=== PATIENT | female | born 1990 | race Caucasian/White ===

== ENCOUNTER 2017-10-14 22:10 | Emergency (ER) | payer BC ==
[2017-10-14] MEDS ORDERED: Sodium Chloride 0.9% 1,000 ML IV ONE (23:44)
[2017-10-14] MEDS ORDERED: Ondansetron 4 MG/2 ML SDV IVPUSH ONE (23:44)
--- NOTE | 2017-10-15 00:26 | EDM.PDOC ---
ED HPI GENERAL MEDICAL PROBLEM - General Chief Complaint: Gastrointestinal Problem Stated Complaint: ABDOMINAL CRAMPS/VOMITING/DIARRHEA/13 WKS Time Seen by Provider: 10/14/17 22:33 Source of Information: Reports: Patient, RN Notes Reviewed, Significant Other ( Fiance) History Limitations: Reports: No Limitations - History of Present Illness INITIAL COMMENTS - FREE TEXT/NARRATIVE: The patient states that she is approximately 13 weeks gestation. . LMP 2016. ERI 04/19/2018. She states that she developed nausea and upper abdominal pain around 20:00 tonight. She developed watery, non-bloody diarrhea around 21:00, then emesis around 21:40. She states that the diarrhea has been frequent. No recent fever. 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 No prior similar symptoms. The patient did not attempt any home remedies or treatments. The patient does not have a PCP. Her Informatica Developer is Dr. Whitlock. 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 - Past Surgical History HEENT Surgical History: Reports: Myringotomy w Tube(s) (bilateral), Tonsillectomy GI Surgical History: Reports: Hernia, Inguinal (bilateral) Female Surgical History: Reports: Other (See Below) (Exploratory laparoscopy looking for endometriosis - none found) Musculoskeletal Surgical History: Reports: Other (See Below) (Left Lisfranc repair) Social & Family History - Tobacco Use Smoking Status *Q: Never Smoker - Alcohol Use Alcohol Use History: Yes Alcohol Use Frequency: Socially - Recreational Drug Use Recreational Drug Use: No - Living Situation & Occupation Living situation: Reports: Single, with Significant Other (Fiance) 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) ED ROS GENERAL - Review of Systems Review Of Systems: See Below Constitutional: Reports: No Symptoms HEENT: Reports: No Symptoms Respiratory: Reports: No Symptoms Cardiovascular: Reports: No Symptoms Endocrine: Reports: No Symptoms GI/Abdominal: Reports: No Symptoms : Reports: No Symptoms Musculoskeletal: Reports: No Symptoms Skin: Reports: No Symptoms Neurological: Reports: No Symptoms Psychiatric: Reports: No Symptoms Hematologic/Lymphatic: Reports: No Symptoms Immunologic: Reports: No Symptoms ED EXAM, GI/ABD - Physical Exam Exam: See Below Exam Limited By: No Limitations General Appearance: Alert, WD/WN, No Apparent Distress Eyes: Bilateral: Normal Appearance, EOMI Ears: Normal External Exam, Hearing Grossly Normal Nose: Normal Inspection, No Blood Throat/Mouth: Normal Inspection, Normal Lips, Normal Voice, No Airway Compromise Head: Atraumatic, Normocephalic Neck: Normal Inspection, Full Range of Motion Respiratory/Chest: No Respiratory Distress, Lungs Clear, Normal Breath Sounds, No Accessory Muscle Use Cardiovascular: Normal Peripheral Pulses, Regular Rate, Rhythm, No Gallop, No JVD, No Murmur, No Rub GI/Abdominal Exam: Normal Bowel Sounds, Soft, Non-Tender, No Organomegaly, No Distention, No Abnormal Bruit, No Mass (Female) Exam: Deferred Rectal (Female) Exam: Deferred Back Exam: Normal Inspection, Full Range of Motion. No: CVA Tenderness (L), CVA Tenderness (R) Extremities: Normal Inspection, Normal Range of Motion, No Pedal Edema, Normal Capillary Refill Neurological: Alert, Oriented, Normal Cognition, No Motor/Sensory Deficits Psychiatric: Normal Affect Skin Exam: Warm, Dry, Intact, Normal Color, No Rash Course - Vital Signs Last Recorded V/S: Last Vital Signs Temp 35.9 C 10/14/17 22:18 Pulse 106 H 10/14/17 22:18 Resp 18 10/14/17 22:18 BP 130/96 H 10/14/17 22:18 Pulse Ox 100 10/14/17 22:18 - Orders/Labs/Meds Orders: Active Orders 24 hr Category Date Time Status Heart Tones [RC] ASDIRECTED Care 10/15/17 03:17 Active Labs: Laboratory Tests 10/14/17 10/14/17 10/15/17 Range/Units 22:24 22:24 00:50 WBC 17.73 H (3.98-10.04) K/mm3 RBC 5.13 (3.98-5.22) M/mm3 Hgb 15.4 (11.2-15.7) gm/L Hct 43.6 (34.1-44.9) % MCV 85.0 (79.4-94.8) fl MCH 30.0 (25.6-32.2) pg MCHC 35.3 (32.2-35.5) g/dl RDW Std Deviation 36.9 (36.4-46.3) fL Plt Count 206 (182-369) K/mm3 MPV 11.1 (9.4-12.3) fl Neutrophils % (Manual) 88 H (40-60) % Band Neutrophils % 0 (0-10) % Lymphocytes % (Manual) 8 L (20-40) % Atypical Lymphs % 1 % Monocytes % (Manual) 3 (2-10) % Eosinophils % (Manual) 0 L (0.7-5.8) % Basophils % (Manual) 0 L (0.1-1.2) Platelet Estimate Adequate Plt Morphology Comment Normal RBC Morph Comment Normal Sodium 139 (136-145) mEq/L Potassium 3.1 L (3.5-5.1) mEq/L Chloride 105 (98-107) mEq/L Carbon Dioxide 22 (21-32) mEq/L Anion Gap 15.1 H (5-15) BUN 11 (7-18) mg/dL Creatinine 0.6 (0.55-1.02) mg/dL Est Cr Clr Drug Dosing 129.51 mL/min Estimated GFR (MDRD) > 60 (>60) mL/min BUN/Creatinine Ratio 18.3 H (14-18) Glucose 96 (74-106) mg/dL Calcium 9.5 (8.5-10.1) mg/dL Total Bilirubin 1.0 (0.2-1.0) mg/dL AST 20 (15-37) U/L ALT 26 (14-59) U/L Alkaline Phosphatase 54 (46-116) U/L Total Protein 7.0 (6.4-8.2) g/dl Albumin 3.7 (3.4-5.0) g/dl Globulin 3.3 gm/dL Albumin/Globulin Ratio 1.1 (1-2) Lipase 156 (73-393) U/L Urine Color Dark yellow (Yellow) Urine Appearance Clear (Clear) Urine pH 6.0 (5.0-8.0) Ur Specific [place] > or = 1.030 (1.005-1.030) Urine Protein 1+ H (Negative) Urine Glucose (UA) Negative (Negative) Urine Ketones 2+ H (Negative) Urine Occult Blood Negative (Negative) Urine Nitrite Negative (Negative) Urine Bilirubin 1+ H (Negative) Urine Urobilinogen 0.2 (0.2-1.0) Ur Leukocyte Esterase Negative (Negative) Urine RBC 0-5 (0-5) /hpf Urine WBC 0-5 (0-5) /hpf Ur Epithelial Cells 0-5 (0-5) /hpf Amorphous Sediment Moderate H (NOT SEEN) /hpf Urine Bacteria Occasional (FEW) /hpf Hyaline Casts 0-5 (0-5) /lpf Urine Mucus Many H (FEW) /hpf Meds: Medications Discontinued Medications Generic Name Dose Route Start Last Admin Trade Name Freq PRN Reason Stop Dose Admin Sodium Chloride 1,000 mls @ 999 mls/hr 10/14/17 23:44 10/14/17 23:53 Normal Saline IV 10/15/17 00:44 999 mls/hr ONETIME ONE Administration Ondansetron HCl 4 mg 10/14/17 23:44 10/14/17 23:54 Zofran IVPUSH 10/14/17 23:45 4 mg ONETIME ONE Administration Ondansetron HCl 4 mg 10/15/17 02:36 10/15/17 02:40 Zofran IVPUSH 10/15/17 02:37 4 mg ONETIME ONE Administration Potassium Chloride 40 meq 10/15/17 01:11 10/15/17 01:16 Klor-Con M20 PO 10/15/17 01:12 40 meq ONETIME ONE Administration - Re-Assessments/Exams Free Text/Narrative Re-Assessment/Exam: 10/15/17 01:11 The patient's potassium returned low at 3.1. I have ordered 40 mEq oral potassium. 10/15/17 03:14 The patient states that she is feeling substantially better following IV fluid and Zofran. I will discharge her home with a prescription for Zofran. I would like her to follow-up with her Informatica Developer early this coming week. 10/15/17 03:24 heart tones are 170. Departure - Departure Time of Disposition: 03:14 Disposition: Home, Self-Care 01 Condition: Good Clinical Impression: Gastroenteritis, - Discharge Information Prescriptions: Ondansetron [Zofran ODT] 4 mg PO Q8H PRN #10 tab.dis PRN Reason: Nausea/Vomiting Instructions: Viral Gastroenteritis, Adult Referrals: Yamileth Whitlock MD [Primary Care Provider] - Forms: ED Department Discharge Additional Instructions: You were seen in the emergency room for nausea, vomiting, diarrhea, and upper abdominal pain. Workup in the ER included blood work, a urinalysis, and heart tones. Your workup found your white blood cell count to be elevated, but with no left shift to suggest a bacterial infection. Your potassium was found to be low at 3.1. You were given oral potassium. The remainder of your workup was unremarkable. You do not have a urinary tract infection. You do not have pancreatitis. Your heart tones were normal at 170 BPM. Dissolve one tablet of the anti-nausea medicine Zofran on your tongue up to every 8 hours, as needed for nausea/vomiting. Stay adequately hydrated. Be aware that anti-diarrheal medicines are not approved for . We recommend that you notify the office of Dr. Whitlock of your ER visit and Zofran prescription. Dr. Whitlock may prefer you to be on a different anti- nausea medicine. If any other problems, please do not hesitate to return to the ER. - My Orders Last 24 Hours: My Active Orders 10/15/17 03:17 Heart Tones [RC] ASDIRECTED - Assessment/Plan Last 24 Hours: My Active Orders 10/15/17 03:17 Heart Tones [RC] ASDIRECTED
[2017-10-15] MEDS ORDERED: Potassium Chloride 20 MEQ Tab.ER PO ONE (01:11)
[2017-10-15] MEDS ORDERED: Ondansetron 4 MG/2 ML SDV IVPUSH ONE (02:36)
== END 2017-10-15 03:35 | disposition home or self-care (01) ==
LOC: JD.ED 22:10
DX: O99.611 Diseases of the digestive system complicating pregnancy, first trimester (principal); K52.9 Noninfective gastroenteritis and colitis, unspecified; Z3A.13 13 weeks gestation of pregnancy
CPT/HCPCS: 36415; 80053; 81001; 83690; 85025; 96361; 96374; 96375; 99284; A9270; J2405; J7040

== ENCOUNTER 2018-03-29 17:49 | Inpatient (IN) | payer BC ==
[2018-03-29] MEDS ORDERED: Nalbuphine 20 MG/ML 1 ML Syringe IVPUSH PRN (18:23)
[2018-03-29] MEDS ORDERED: Misoprostol 100 MCG Tab VAG PRN (18:23)
[2018-03-29] MEDS ORDERED: Ondansetron 4 MG/2 ML SDV IVPUSH PRN ×2 (18:23→20:57)
[2018-03-29] MEDS ORDERED: Sodium Chloride 0.9% 10 ML Syringe FLUSH PRN (18:23)
[2018-03-29] MEDS ORDERED: Oxytocin/Lactated Ringers 10 UNIT/1,000 ML BAG IV SCH ×3 (18:30→23:15)
--- NOTE | 2018-03-29 18:36 | PCM.LDHP ---
L&D History of Present Illness - General Date of Service: 03/29/18 Admit Problem/Dx: Patient Status Order with Admit Dx/Problem 03/29/18 18:24 Patient Status [ADT] Routine Admission Diagnosis/Problem Admission Diagnosis/Problem Gestational hypertension Source of Information: Patient History Limitations: Reports: No Limitations - History of Present Illness Introduction:: Patient is a 27 y/o at 37 0/7 wks who presents for IOL for gestational HTN. Last Tuesday had been seen with several mild range BP's. Had a normal follow up earlier this week, but today again noted to have mild range BP's. This is in addition to intermittent KNOX's and other complaints. Otherwise doing well. Notes good FM. 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 Other Musculoskeletal History: Kathy-lukas repair L) foot Psychiatric History: Reports: ADD - Past Surgical History HEENT Surgical History: Reports: Myringotomy w Tube(s) (bilateral), Tonsillectomy GI Surgical History: Reports: Hernia, Inguinal (bilateral) Female Surgical History: Reports: Other (See Below) (Diagnostic laparoscopy looking for endometriosis - none found) Musculoskeletal Surgical History: Reports: Other (See Below) (Left Lisfranc repair) Social & Family History - Tobacco Use Smoking Status *Q: Never Smoker - Alcohol Use Alcohol Use History: No - Recreational Drug Use Recreational Drug Use: No - Living Situation & Occupation Living situation: Reports: Single, with Significant Other (Fiance) 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[employer]) H&P Review of Systems - Review of Systems: Review Of Systems: See Below General: Reports: No Symptoms Pulmonary: Reports: No Symptoms Cardiovascular: Reports: No Symptoms Gastrointestinal: Reports: No Symptoms Genitourinary: Reports: No Symptoms Musculoskeletal: Reports: No Symptoms Psychiatric: Reports: No Symptoms Neurological: Reports: No Symptoms L&D Exam - Exam Exam: See Below - OB Specific Contraction Intensity: Mild Movement: Active Heart Tones: Present Heart Tones per Min: 135 Heart Rate (FHR) Variability: Moderate (6-25 bmp) Presentation: Vertex - Duong Score Duong Score Cervix Position: Posterior Duong Score Consistency: Soft Duong Score Effacement: >80% Duong Score Dilation: 1-2 cm Duong Score 's Station: -2 Duong Score Total: 7 - Exam General: Alert, Oriented, Cooperative Lungs: Clear to Auscultation, Normal Respiratory Effort Cardiovascular: Regular Rate, Regular Rhythm GI/Abdominal Exam: Soft, Non-Tender Genitourinary: Normal external exam Extremities: Normal Inspection, Pedal Edema Skin: Warm, Dry, Intact - Problem List (1) 37 weeks gestation of SNOMED Code(s): 94158479 ICD Code: Z3A.37 - 37 WEEKS GESTATION OF Status: Acute Current Visit: Yes (2) Gestational hypertension SNOMED Code(s): 34921455 ICD Code: O13.9 - GESTATIONAL HTN W/O SIGNIFICANT PROTEINURIA, UNSP TRIMESTER Status: Acute Current Visit: Yes Qualifiers: Trimester: third trimester Qualified Code(s): O13.3 - Gestational [ -induced] hypertension without significant proteinuria, third trimester Problem List Initiated/Reviewed/Updated: Yes Orders Last 24hrs: Active Orders 24 hr Category Date Time Status Patient Status [ADT] Routine ADT 03/29/18 18:24 Ordered Activity as Tolerated [RC] PFP Care 03/29/18 18:23 Ordered Communication Order [RC] ASDIRECTED Care 03/29/18 18:23 Ordered Communication Order [RC] ASDIRECTED Care 03/29/18 18:23 Ordered Communication Order [RC] ASDIRECTED Care 03/29/18 18:23 Ordered Monitoring [RC] CONTINUOUS Care 03/29/18 18:23 Ordered Notify Provider Vital Signs [RC] ASDIRECTED Care 03/29/18 18:23 Ordered Notify Provider [RC] ASDIRECTED Care 03/29/18 18:23 Ordered Notify Provider [RC] PRN Care 03/29/18 18:23 Ordered Peripheral IV Care [RC] . DIRECTED Care 03/29/18 18:24 Ordered Vaginal Exam [RC] ASDIRECTED Care 03/29/18 18:23 Ordered Vital Signs [RC] ASDIRECTED Care 03/29/18 18:23 Ordered Regular Diet [DIET] Diet 03/29/18 Dinner Ordered ALANINE AMINOTRANSFERASE,ALT [CHEM] Routine Lab 03/29/18 18:23 Ordered ASPARTATE AMNIOTRANSFERASE,AST [CHEM] Routine Lab 03/29/18 18:23 Ordered CBC W/O DIFF,HEMOGRAM [HEME] Routine Lab 03/29/18 18:23 Ordered CREATININE W/GFR [CHEM] Routine Lab 03/29/18 18:23 Ordered TYPE AND SCREEN [BBK] Routine Lab 03/29/18 18:23 Ordered UA W/MICROSCOPIC [URIN] Routine Lab 03/29/18 18:23 Ordered Lactated Ringers [Ringers, Lactated] 1,000 ml Med 03/29/18 18:30 Ordered IV ASDIRECTED Misoprostol [Cytotec] Med 03/29/18 18:23 Ordered 25 mcg VAG Q4H PRN Nalbuphine [Nubain] Med 03/29/18 18:23 Ordered 10 mg IVPUSH Q2H PRN Ondansetron [Zofran] Med 03/29/18 18:23 Ordered 4 mg IVPUSH Q4H PRN Oxytocin/Lactated Ringers [Pitocin in LR 10 Units/1,000 Med 03/29/18 18:30 Ordered ML] 10 unit in 1,000 ml IV .CONTINUOUS Oxytocin/Lactated Ringers [Pitocin in LR 10 Units/1,000 Med 03/29/18 18:30 Ordered ML] 10 unit in 1,000 ml IV TITRATE Sodium Chloride 0.9% [Saline Flush] Med 03/29/18 18:23 Ordered 10 ml FLUSH ASDIRECTED PRN Deep Tendon Reflexes [WOMSER] ASDIRECTED Oth 03/29/18 18:30 Ordered Peripheral IV Insertion Adult [OM.PC] Routine Oth 03/29/18 18:23 Ordered Medication Orders Lactated Ringer's (Ringers, Lactated) 1,000 mls @ 40 mls/hr IV ASDIRECTED ZEE Oxytocin/Lactated Ringer's (Pitocin In Lr 10 Units/1,000 Ml) 10 unit in 1,000 mls @ 12 mls/hr IV TITRATE ZEE; Protocol Oxytocin/Lactated Ringer's (Pitocin In Lr 10 Units/1,000 Ml) 10 unit in 1,000 mls @ 500 mls/hr IV .CONTINUOUS ZEE Misoprostol (Cytotec) 25 mcg VAG Q4H PRN PRN Reason: cervical ripening Nalbuphine HCl (Nubain) 10 mg IVPUSH Q2H PRN PRN Reason: Pain (moderate 4-6) Ondansetron HCl (Zofran) 4 mg IVPUSH Q4H PRN PRN Reason: Nausea/Vomiting Sodium Chloride (Saline Flush) 10 ml FLUSH ASDIRECTED PRN PRN Reason: Keep Vein Open Assessment/Plan Comment:: 27 y/o at 37 0/7 wks presents for IOL for gestational HTN * CBC and T&S * AST, ALT, Cr, UA * Anderson bulb placed. Will plan Cytotec to start and then eventual pitocin * GBS negative, no need for antibiotics * Pain management per patient preference * Anticipate
[2018-03-29] MEDS ORDERED: Misoprostol 25 MCG (1/4 of 100 MCG) Tab ONE (18:55)
[2018-03-29] MEDS ORDERED: ePHEDrine 50 MG/ML SDV IVPUSH PRN (20:57)
[2018-03-29] MEDS ORDERED: diphenhydrAMINE 50 MG/ML SDV IVPUSH PRN (20:57)
[2018-03-29] MEDS ORDERED: fentaNYL 100 MCG/2 ML SDV EPIDUR PRN (20:57)
[2018-03-29] MEDS ORDERED: Bupivacaine/fentaNYL/NS 100 ML Bag EPIDUR SCH (21:00)
--- NOTE | 2018-03-29 21:15 | PCM.PREANE ---
Preanesthetic Assessment - Procedure Proposed Procedure: LEONEL - Anesthesia/Transfusion/Family Hx Anesthesia History: Prior Anesthesia Without Reaction Family History of Anesthesia Reaction: No Transfusion History: No Prior Transfusion(s) - Review of Systems General: No Symptoms Pulmonary: No Symptoms Cardiovascular: No Symptoms Gastrointestinal: Other (occ GERD relieved with milk) Neurological: No Symptoms Other: Reports: None - Physical Assessment NPO Status Date: 03/29/18 NPO Status Time: 18:00 Respiratory Rate: 16 Vital Signs: Last Vital Signs Temp 36.7 C 03/29/18 18:23 Pulse 84 03/29/18 18:23 Resp 16 03/29/18 18:23 BP 141/98 H 03/29/18 18:23 Pulse Ox Height: 1.68 m Weight: 87.09 kg ASA Class: 2 Mental Status: Alert & Oriented x3 Airway Class: Mallampati = 1 Dentition: Reports: Normal Dentition Thyro-Mental Finger Breadths: 3 Mouth Opening Finger Breadths: 3 ROM/Head Extension: Full Lungs: Clear to Auscultation, Normal Respiratory Effort Cardiovascular: Regular Rate, Regular Rhythm - Lab Values: Laboratory Last Values WBC 12.57 K/mm3 (3.98-10.04) H 03/29/18 18:45 RBC 4.20 M/mm3 (3.98-5.22) 03/29/18 18:45 Hgb 12.8 gm/L (11.2-15.7) 03/29/18 18:45 Hct 37.1 % (34.1-44.9) 03/29/18 18:45 MCV 88.3 fl (79.4-94.8) 03/29/18 18:45 MCH 30.5 pg (25.6-32.2) 03/29/18 18:45 MCHC 34.5 g/dl (32.2-35.5) 03/29/18 18:45 RDW Std Deviation 39.1 fL (36.4-46.3) 03/29/18 18:45 Plt Count 175 K/mm3 (182-369) L 03/29/18 18:45 MPV 11.6 fl (9.4-12.3) 03/29/18 18:45 Creatinine 0.7 mg/dL (0.55-1.02) 03/29/18 18:45 Est Cr Clr Drug Dosing 111.01 mL/min 03/29/18 18:45 Estimated GFR (MDRD) > 60 mL/min (>60) 03/29/18 18:45 AST 14 U/L (15-37) L 03/29/18 18:45 ALT 20 U/L (14-59) 03/29/18 18:45 Urine Color Yellow (Yellow) 03/29/18 18:15 Urine Appearance Clear (Clear) 03/29/18 18:15 Urine pH 7.0 (5.0-8.0) 03/29/18 18:15 Ur Specific [place] 1.015 (1.005-1.030) 03/29/18 18:15 Urine Protein Negative (Negative) 03/29/18 18:15 Urine Glucose (UA) Negative (Negative) 03/29/18 18:15 Urine Ketones Negative (Negative) 03/29/18 18:15 Urine Occult Blood Negative (Negative) 03/29/18 18:15 Urine Nitrite Negative (Negative) 03/29/18 18:15 Urine Bilirubin Negative (Negative) 03/29/18 18:15 Urine Urobilinogen 0.2 (0.2-1.0) 03/29/18 18:15 Ur Leukocyte Esterase Negative (Negative) 03/29/18 18:15 Urine RBC 0-5 /hpf (0-5) 03/29/18 18:15 Urine WBC 0-5 /hpf (0-5) 03/29/18 18:15 Ur Epithelial Cells 0-5 /hpf (0-5) 03/29/18 18:15 Urine Bacteria Few /hpf (FEW) 03/29/18 18:15 Urine Mucus Not seen /hpf (FEW) 03/29/18 18:15 Blood Type AB POSITIVE 03/29/18 18:45 Gel Antibody Screen Negative 03/29/18 18:45 - Allergies Allergies/Adverse Reactions: Allergies Allergy/AdvReac Type Severity Reaction Status Date / Time banana Allergy Itching Uncoded 03/29/18 18:52 cantelope Allergy Itching Uncoded 03/29/18 18:52 latex Allergy Itching Uncoded 03/29/18 18:52 watermelon Allergy Facial Uncoded 03/29/18 18:52 Swelling - Blood Blood Available: No Product(s) Available: None - Anesthesia Plan Pre-Op Medication Ordered: None - Acknowledgements Anesthesia Type Planned: Epidural Pt an Appropriate Candidate for the Planned Anesthesia: Yes Alternatives and Risks of Anesthesia Discussed w Pt/Guardian: Yes Pt/Guardian Understands and Agrees with Anesthesia Plan: Yes PreAnesthesia Questionnaire Respiratory History: Reports: Asthma 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 Musculoskeletal History: Kathy-lukas repair L) foot Psychiatric History: Reports: ADD - Past Surgical History HEENT Surgical History: Reports: Myringotomy w Tube(s), Tonsillectomy GI Surgical History: Reports: Hernia, Inguinal Female Surgical History: Reports: Other (See Below) Musculoskeletal Surgical History: Reports: Other (See Below) - SUBSTANCE USE Smoking Status *Q: Never Smoker Recreational Drug Use History: No - HOME MEDS Home Medications: Home Meds Vits #93/Iron Fum/FA [ Formula Tablet] 1 tab PO DAILY 10/14/17 [History] Ondansetron [Zofran ODT] 4 mg PO Q8H PRN #10 tab.dis 10/15/17 [Rx] - CURRENT (IN HOUSE) MEDS Current Meds: Current Medications Diphenhydramine HCl (Benadryl) 25 mg IVPUSH Q6H PRN PRN Reason: Pruritis Ephedrine Sulfate (Ephedrine Sulfate) 5 mg IVPUSH ASDIRECTED PRN PRN Reason: Hypotension Fentanyl (Sublimaze) 100 mcg EPIDUR Q3H PRN PRN Reason: Pain Fentanyl/Bupivacaine HCl (Fentanyl/Bupivacaine/Ns 2 Mcg-0.125% 100 Ml) 100 ml EPIDUR ASDIRECTED ZEE Lactated Ringer's (Ringers, Lactated) 1,000 mls @ 40 mls/hr IV ASDIRECTED ZEE Oxytocin/Lactated Ringer's (Pitocin In Lr 10 Units/1,000 Ml) 10 unit in 1,000 mls @ 12 mls/hr IV TITRATE ZEE; Protocol Oxytocin/Lactated Ringer's (Pitocin In Lr 10 Units/1,000 Ml) 10 unit in 1,000 mls @ 500 mls/hr IV .CONTINUOUS ZEE Misoprostol (Cytotec) 25 mcg VAG Q4H PRN PRN Reason: cervical ripening Last Admin: 03/29/18 19:15 Dose: 25 mcg Nalbuphine HCl (Nubain) 10 mg IVPUSH Q2H PRN PRN Reason: Pain (moderate 4-6) Ondansetron HCl (Zofran) 4 mg IVPUSH Q4H PRN PRN Reason: Nausea/Vomiting Ondansetron HCl (Zofran) 4 mg IVPUSH ONETIME PRN PRN Reason: Nausea/Vomiting Sodium Chloride (Saline Flush) 10 ml FLUSH ASDIRECTED PRN PRN Reason: Keep Vein Open Discontinued Medications Misoprostol (Cytotec) Confirm Administered Dose 25 mcg .ROUTE .[facility] ONE Stop: 03/29/18 18:56
[2018-03-29] MEDS: Lactated Ringers 1,000 ML IV SCH (23:11)
[2018-03-30] MEDS ORDERED: Bupivacaine 0.25% 10 ML SDV ONE (04:00)
[2018-03-30] MEDS: Lactated Ringers 1,000 ML IV SCH ×2 (06:17→07:45)
--- NOTE | 2018-03-30 06:24 | PCM.PNLD ---
Labor Progress Note - VS & Meds Vital Signs: Last Vital Signs Temp 36.7 C 03/29/18 18:23 Pulse 84 03/29/18 18:23 Resp 16 03/29/18 21:14 BP 141/98 H 03/29/18 18:23 Pulse Ox Active Medications: Current Medications Diphenhydramine HCl (Benadryl) 25 mg IVPUSH Q6H PRN PRN Reason: Pruritis Ephedrine Sulfate (Ephedrine Sulfate) 5 mg IVPUSH ASDIRECTED PRN PRN Reason: Hypotension Fentanyl (Sublimaze) 100 mcg EPIDUR Q3H PRN PRN Reason: Pain Fentanyl/Bupivacaine HCl (Fentanyl/Bupivacaine/Ns 2 Mcg-0.125% 100 Ml) 100 ml EPIDUR ASDIRECTED ZEE Lactated Ringer's (Ringers, Lactated) 1,000 mls @ 40 mls/hr IV ASDIRECTED ZEE Last Admin: 03/29/18 23:11 Dose: 40 mls/hr Oxytocin/Lactated Ringer's (Pitocin In Lr 10 Units/1,000 Ml) 10 unit in 1,000 mls @ 12 mls/hr IV TITRATE EZE; Protocol Last Titration: 03/30/18 05:30 Dose: 8 munits/min, 48 mls/hr Oxytocin/Lactated Ringer's (Pitocin In Lr 10 Units/1,000 Ml) 10 unit in 1,000 mls @ 500 mls/hr IV .CONTINUOUS ZEE Misoprostol (Cytotec) 25 mcg VAG Q4H PRN PRN Reason: cervical ripening Last Admin: 03/29/18 19:15 Dose: 25 mcg Nalbuphine HCl (Nubain) 10 mg IVPUSH Q2H PRN PRN Reason: Pain (moderate 4-6) Ondansetron HCl (Zofran) 4 mg IVPUSH Q4H PRN PRN Reason: Nausea/Vomiting Ondansetron HCl (Zofran) 4 mg IVPUSH ONETIME PRN PRN Reason: Nausea/Vomiting Sodium Chloride (Saline Flush) 10 ml FLUSH ASDIRECTED PRN PRN Reason: Keep Vein Open Discontinued Medications Oxytocin/Lactated Ringer's (Pitocin In Lr 10 Units/1,000 Ml) 10 unit in 1,000 mls @ 12 mls/hr IV TITRATE ZEE; Protocol Misoprostol (Cytotec) Confirm Administered Dose 25 mcg .ROUTE .[facility] ONE Stop: 03/29/18 18:56 Last Admin: 03/29/18 23:24 Dose: Not Given - Uterine Contractions Uterine Monitoring Mode: External [place] Contraction Intensity: Moderate - Monitoring Monitor Mode: External Ultrasound Heart Rate (FHR) Per Doppler: 130 Heart Rate (FHR) Variability: Moderate (6-25 bmp) Accelerations: Present, 15x15 Decelerations: None Strip Review: Category I - Vaginal Exam Dilation (cm): 4 Effacement (Percent): 75 Station: -2 Cervical Position: Midposition - Labor Progress (Free Text) Labor Progress: Patient doing well. Anderson bulb out at 2200. Pitocin started around 2330. Now at 8. Just starting to feel uncomfortable since about 0430 or so. AROM performed with release of clear fluid. Pressures mild range overnight.
[2018-03-30] MEDS ORDERED: Lidocaine 1% 50 ML MDV ONE (12:38)
--- NOTE | 2018-03-30 13:24 | PCM.DEL ---
L & D Note - General Info Date of Service: 03/30/18 - Delivery Note Labor: Induced by ARM, Induced by Oxytocin Cervical Ripening Method: Balloon Device, Misoprostil Delivery Outcome: Livebirth Infant Delivery Method: Spontaneous Vaginal Delivery-Single Delivery Mode: Spontaneous Presentation: Left Occiput Anterior (IRENA) Nuchal Cord: None Anesthesia Type: Epidural Anesthetic: Lidocaine (Xylocaine) 1% Plain Amniotic Fluid Description: Clear Episiotomy Type: None Laceration: 2nd Degree, Labial (left sided) Suture type: Vicryl Suture size: 2-0 Placenta: Intact, Spontaneous Cord: 3 Vessels Estimated Blood Loss: 300 Resuscitation Needed: Yes : Suctioned, Bulb Syringe, Stimulated, Warmed, [place] Used, Warmer Used Score 1 min: 8 Score 5 min: 9 Delivery Comments (Free Text/Narrative):: Patient found to be complete and began pushing. With maternal pushing effort head delivered from and IRENA presentation. No nuchal cord present. With gentle downward traction the shoulders and body delivered. placed on maternal abdomen. Cord clamped and cut. Cord blood obtained. Placenta allowed time to separate and expelled intact. Inspection of the perineum showed a 2nd degree laceration and a left labia laceration. These were repaired with two separate 2-0 vicryl rapide sutures - General Info Date of Service: 03/30/18 - Patient Data Vitals - Most Recent: Last Vital Signs Temp 36.7 C 03/29/18 18:23 Pulse 84 03/29/18 18:23 Resp 16 03/29/18 21:14 BP 141/98 H 03/29/18 18:23 Pulse Ox Weight - Most Recent: 87.09 kg Lab Results Last 24 Hours: Laboratory Results - last 24 hr 03/29/18 03/29/18 03/29/18 Range/Units 18:15 18:45 18:45 WBC 12.57 H (3.98-10.04) K/mm3 RBC 4.20 (3.98-5.22) M/mm3 Hgb 12.8 (11.2-15.7) gm/L Hct 37.1 (34.1-44.9) % MCV 88.3 (79.4-94.8) fl MCH 30.5 (25.6-32.2) pg MCHC 34.5 (32.2-35.5) g/dl RDW Std Deviation 39.1 (36.4-46.3) fL Plt Count 175 L (182-369) K/mm3 MPV 11.6 (9.4-12.3) fl Creatinine 0.7 (0.55-1.02) mg/dL Est Cr Clr Drug Dosing 111.01 mL/min Estimated GFR (MDRD) > 60 (>60) mL/min AST 14 L (15-37) U/L ALT 20 (14-59) U/L Urine Color Yellow (Yellow) Urine Appearance Clear (Clear) Urine pH 7.0 (5.0-8.0) Ur Specific [place] 1.015 (1.005-1.030) Urine Protein Negative (Negative) Urine Glucose (UA) Negative (Negative) Urine Ketones Negative (Negative) Urine Occult Blood Negative (Negative) Urine Nitrite Negative (Negative) Urine Bilirubin Negative (Negative) Urine Urobilinogen 0.2 (0.2-1.0) Ur Leukocyte Esterase Negative (Negative) Urine RBC 0-5 (0-5) /hpf Urine WBC 0-5 (0-5) /hpf Ur Epithelial Cells 0-5 (0-5) /hpf Urine Bacteria Few (FEW) /hpf Urine Mucus Not seen (FEW) /hpf Blood Type Gel Antibody Screen 03/29/18 Range/Units 18:45 WBC (3.98-10.04) K/mm3 RBC (3.98-5.22) M/mm3 Hgb (11.2-15.7) gm/L Hct (34.1-44.9) % MCV (79.4-94.8) fl MCH (25.6-32.2) pg MCHC (32.2-35.5) g/dl RDW Std Deviation (36.4-46.3) fL Plt Count (182-369) K/mm3 MPV (9.4-12.3) fl Creatinine (0.55-1.02) mg/dL Est Cr Clr Drug Dosing mL/min Estimated GFR (MDRD) (>60) mL/min AST (15-37) U/L ALT (14-59) U/L Urine Color (Yellow) Urine Appearance (Clear) Urine pH (5.0-8.0) Ur Specific [place] (1.005-1.030) Urine Protein (Negative) Urine Glucose (UA) (Negative) Urine Ketones (Negative) Urine Occult Blood (Negative) Urine Nitrite (Negative) Urine Bilirubin (Negative) Urine Urobilinogen (0.2-1.0) Ur Leukocyte Esterase (Negative) Urine RBC (0-5) /hpf Urine WBC (0-5) /hpf Ur Epithelial Cells (0-5) /hpf Urine Bacteria (FEW) /hpf Urine Mucus (FEW) /hpf Blood Type AB POSITIVE Gel Antibody Screen Negative Med Orders - Current: Current Medications Diphenhydramine HCl (Benadryl) 25 mg IVPUSH Q6H PRN PRN Reason: Pruritis Ephedrine Sulfate (Ephedrine Sulfate) 5 mg IVPUSH ASDIRECTED PRN PRN Reason: Hypotension Fentanyl (Sublimaze) 100 mcg EPIDUR Q3H PRN PRN Reason: Pain Last Admin: 03/30/18 06:54 Dose: 100 mcg Fentanyl/Bupivacaine HCl (Fentanyl/Bupivacaine/Ns 2 Mcg-0.125% 100 Ml) 100 ml EPIDUR ASDIRECTED ZEE Last Admin: 03/30/18 06:54 Dose: 100 ml Lactated Ringer's (Ringers, Lactated) 1,000 mls @ 40 mls/hr IV ASDIRECTED ZEE Last Admin: 03/30/18 07:45 Dose: 40 mls/hr Oxytocin/Lactated Ringer's (Pitocin In Lr 10 Units/1,000 Ml) 10 unit in 1,000 mls @ 12 mls/hr IV TITRATE ZEE; Protocol Last Titration: 03/30/18 08:36 Dose: 9 munits/min, 54 mls/hr Oxytocin/Lactated Ringer's (Pitocin In Lr 10 Units/1,000 Ml) 10 unit in 1,000 mls @ 500 mls/hr IV .CONTINUOUS [facility] Misoprostol (Cytotec) 25 mcg VAG Q4H PRN PRN Reason: cervical ripening Last Admin: 03/29/18 19:15 Dose: 25 mcg Nalbuphine HCl (Nubain) 10 mg IVPUSH Q2H PRN PRN Reason: Pain (moderate 4-6) Ondansetron HCl (Zofran) 4 mg IVPUSH Q4H PRN PRN Reason: Nausea/Vomiting Last Admin: 03/30/18 07:44 Dose: 4 mg Ondansetron HCl (Zofran) 4 mg IVPUSH ONETIME PRN PRN Reason: Nausea/Vomiting Sodium Chloride (Saline Flush) 10 ml FLUSH ASDIRECTED PRN PRN Reason: Keep Vein Open Discontinued Medications Oxytocin/Lactated Ringer's (Pitocin In Lr 10 Units/1,000 Ml) 10 unit in 1,000 mls @ 12 mls/hr IV TITRATE ZEE; Protocol Lidocaine HCl (Xylocaine 1%) Confirm Administered Dose 50 ml .ROUTE .STK-MED ONE Stop: 03/30/18 12:39 Misoprostol (Cytotec) Confirm Administered Dose 25 mcg .ROUTE .STK-MED ONE Stop: 03/29/18 18:56 Last Admin: 03/29/18 23:24 Dose: Not Given - Problem List & Annotations (1) 37 weeks gestation of SNOMED Code(s): 12940341 Code(s): Z3A.37 - 37 WEEKS GESTATION OF Status: Acute Current Visit: Yes (2) Gestational hypertension SNOMED Code(s): 55000119 Code(s): O13.9 - GESTATIONAL HTN W/O SIGNIFICANT PROTEINURIA, UNSP TRIMESTER Status: Acute Current Visit: Yes Qualifiers: Trimester: third trimester Qualified Code(s): O13.3 - Gestational [ -induced] hypertension without significant proteinuria, third trimester (3) Vaginal delivery SNOMED Code(s): 892803435 Code(s): O80 - ENCOUNTER FOR FULL-TERM UNCOMPLICATED DELIVERY Status: Acute Current Visit: Yes - Problem List Review Problem List Initiated/Reviewed/Updated: Yes - My Orders Last 24 Hours: My Active Orders 03/29/18 18:15 UA W/MICROSCOPIC [URIN] Routine 03/29/18 18:23 Activity as Tolerated [RC] PFP Communication Order [RC] ASDIRECTED Communication Order [RC] ASDIRECTED Communication Order [RC] ASDIRECTED Notify Provider Vital Signs [RC] ASDIRECTED Notify Provider [RC] ASDIRECTED Notify Provider [RC] PRN Vital Signs [RC] ASDIRECTED Misoprostol [Cytotec] 25 mcg VAG Q4H PRN Nalbuphine [Nubain] 10 mg IVPUSH Q2H PRN Ondansetron [Zofran] 4 mg IVPUSH Q4H PRN Sodium Chloride 0.9% [Saline Flush] 10 ml FLUSH ASDIRECTED PRN Peripheral IV Insertion Adult [OM.PC] Routine 03/29/18 18:24 Patient Status [ADT] Routine Peripheral IV Care [RC] . DIRECTED 03/29/18 18:30 Lactated Ringers [Ringers, Lactated] 1,000 ml IV ASDIRECTED Oxytocin/Lactated Ringers [Pitocin in LR 10 Units/1,000 ML] 10 unit in 1,000 ml IV .CONTINUOUS Oxytocin/Lactated Ringers [Pitocin in LR 10 Units/1,000 ML] 10 unit in 1,000 ml IV TITRATE Deep Tendon Reflexes [WOMSER] ASDIRECTED 03/29/18 Dinner Regular Diet [DIET] - Assessment Assessment:: 27 y/o G1 now P1001 PPD#0 from at 37 1/7 wks - Plan Plan:: * Routine cares * Encourage breast feeding * Monitor BP's closely after delivery * Discharge home in 1-2 days
[2018-03-30] MEDS ORDERED: Lanolin 100% Cream 7 GM Tube TOP PRN (13:32)
[2018-03-30] MEDS ORDERED: Benzocaine/Menthol 20%-0.5% Spray 56 GM Canister TOP PRN (13:32)
[2018-03-30] MEDS ORDERED: Acetaminophen 325 MG Tab PO PRN (13:32)
[2018-03-30] MEDS ORDERED: Witch Hazel Medicated Pads 100/Jar TOP PRN (13:32)
[2018-03-30] MEDS: Ibuprofen 600 MG Tab PO PRN (13:51)
[2018-03-31] MEDS: Ibuprofen 600 MG Tab PO PRN ×4 (03:40→21:20)
--- NOTE | 2018-03-31 07:04 | PCM.PNPP ---
- General Info Date of Service: 03/31/18 Functional Status: Reports: Pain Controlled, Tolerating Diet, Ambulating, Urinating - Review of Systems General: Reports: No Symptoms Pulmonary: Reports: No Symptoms Cardiovascular: Reports: No Symptoms Gastrointestinal: Reports: No Symptoms Genitourinary: Reports: No Symptoms Musculoskeletal: Reports: No Symptoms - Patient Data Vital Signs - Most Recent: Last Vital Signs Temp 36.8 C 03/30/18 20:55 Pulse 81 03/30/18 20:55 Resp 16 03/30/18 20:55 BP 105/78 03/30/18 20:55 Pulse Ox 97 03/30/18 20:55 Weight - Most Recent: 87.09 kg Med Orders - Current: Current Medications Acetaminophen (Tylenol) 650 mg PO Q4H PRN PRN Reason: mild pain or fever Benzocaine/Menthol (Dermoplast Pain Relief [place]) 0 gm TOP ASDIRECTED PRN PRN Reason: Perineal Comfort Measure Last Admin: 03/30/18 15:47 Dose: 1 spray Docusate Sodium (Colace) 100 mg PO BID PRN PRN Reason: Constipation Emollient Ointment (Lansinoh Hpa) 0 gm TOP ASDIRECTED PRN PRN Reason: Sore Nipples Ibuprofen (Motrin) 600 mg PO Q6H PRN PRN Reason: Mild pain or fever Last Admin: 03/31/18 03:40 Dose: 600 mg Witch Isi (Tucks) 1 pad TOP ASDIRECTED PRN PRN Reason: Hemorrhoid pain Last Admin: 03/30/18 15:47 Dose: 1 pad Discontinued Medications Diphenhydramine HCl (Benadryl) 25 mg IVPUSH Q6H PRN PRN Reason: Pruritis Ephedrine Sulfate (Ephedrine Sulfate) 5 mg IVPUSH ASDIRECTED PRN PRN Reason: Hypotension Fentanyl (Sublimaze) 100 mcg EPIDUR Q3H PRN PRN Reason: Pain Last Admin: 03/30/18 06:54 Dose: 100 mcg Fentanyl/Bupivacaine HCl (Fentanyl/Bupivacaine/Ns 2 Mcg-0.125% 100 Ml) 100 ml EPIDUR ASDIRECTED [facility] Last Admin: 03/30/18 06:54 Dose: 100 ml Lactated Ringer's (Ringers, Lactated) 1,000 mls @ 40 mls/hr IV ASDIRECTED [facility] Last Admin: 03/30/18 07:45 Dose: 40 mls/hr Oxytocin/Lactated Ringer's (Pitocin In Lr 10 Units/1,000 Ml) 10 unit in 1,000 mls @ 12 mls/hr IV TITRATE ZEE; Protocol Last Titration: 03/30/18 08:36 Dose: 9 munits/min, 54 mls/hr Oxytocin/Lactated Ringer's (Pitocin In Lr 10 Units/1,000 Ml) 10 unit in 1,000 mls @ 500 mls/hr IV .CONTINUOUS ZEE Oxytocin/Lactated Ringer's (Pitocin In Lr 10 Units/1,000 Ml) 10 unit in 1,000 mls @ 12 mls/hr IV TITRATE ZEE; Protocol Lidocaine HCl (Xylocaine 1%) Confirm Administered Dose 50 ml .ROUTE .STK-MED ONE Stop: 03/30/18 12:39 Last Admin: 03/30/18 13:03 Dose: 50 ml Misoprostol (Cytotec) 25 mcg VAG Q4H PRN PRN Reason: cervical ripening Last Admin: 03/29/18 19:15 Dose: 25 mcg Misoprostol (Cytotec) Confirm Administered Dose 25 mcg .ROUTE .STK-MED ONE Stop: 03/29/18 18:56 Last Admin: 03/29/18 23:24 Dose: Not Given Nalbuphine HCl (Nubain) 10 mg IVPUSH Q2H PRN PRN Reason: Pain (moderate 4-6) Ondansetron HCl (Zofran) 4 mg IVPUSH Q4H PRN PRN Reason: Nausea/Vomiting Last Admin: 03/30/18 07:44 Dose: 4 mg Ondansetron HCl (Zofran) 4 mg IVPUSH ONETIME PRN PRN Reason: Nausea/Vomiting Sodium Chloride (Saline Flush) 10 ml FLUSH ASDIRECTED PRN PRN Reason: Keep Vein Open - Interaction Infant Disposition, : [place] in Room with Family Interaction: Holding Feeding: Breastfed ; Nursed Well Support Person: Significant Other - Recovery Exam Fundal Tone: Firm Fundal Level: 1 Fingerbreadths Below Umbilicus Fundal Placement: Midline Lochia Amount: Small Lochia Color: Rubra/Red Perineum Description: Edematous Episiotomy/Laceration: Approximated Bladder Status: Voiding Urinary Elimination: Voided - Exam General: Alert, Oriented, Cooperative GI/Abdominal Exam: Soft, Non-Tender Extremities: Normal Inspection Skin: Warm, Dry, Intact - Problem List & Annotations (1) 37 weeks gestation of SNOMED Code(s): 69638713 Code(s): Z3A.37 - 37 WEEKS GESTATION OF Status: Acute Current Visit: Yes (2) Gestational hypertension SNOMED Code(s): 40510618 Code(s): O13.9 - GESTATIONAL HTN W/O SIGNIFICANT PROTEINURIA, UNSP TRIMESTER Status: Acute Current Visit: Yes Qualifiers: Trimester: third trimester Qualified Code(s): O13.3 - Gestational [ -induced] hypertension without significant proteinuria, third trimester (3) Vaginal delivery SNOMED Code(s): 906869828 Code(s): O80 - ENCOUNTER FOR FULL-TERM UNCOMPLICATED DELIVERY Status: Acute Current Visit: Yes - Problem List Review Problem List Initiated/Reviewed/Updated: Yes - My Orders Last 24 Hours: My Active Orders 03/30/18 13:32 Activity as Tolerated [RC] PER UNIT ROUTINE Vital Signs [RC] ASDIRECTED Acetaminophen [Tylenol] 650 mg PO Q4H PRN Benzocaine/Menthol [Dermoplast Pain Relief [place]] See Dose Instructions TOP ASDIRECTED PRN Docusate Sodium [Colace] 100 mg PO BID PRN Ibuprofen [Motrin] 600 mg PO Q6H PRN Lanolin [Lansinoh HPA] See Dose Instructions TOP ASDIRECTED PRN Witch Isi [Tucks] 1 pad TOP ASDIRECTED PRN Assess Lochia [WOMSER] Per Unit Routine Assess Uterine Involution [WOMSER] Per Unit Routine Breast Pump [WOMSER] Per Unit Routine Heat Therapy [OM.PC] PRN Ice Therapy [OM.PC] Per Unit Routine Perineal Care [OM.PC] Per Unit Routine Peripheral IV Discontinue [OM.PC] Routine Sitz Bath [OM.PC] Per Unit Routine 03/30/18 Lunch Regular Diet [DIET] 03/31/18 13:32 Heat Therapy [OM.PC] PRN - Assessment Assessment:: 27 y/o G1 now P1001 PPD#1 from at 37 1/7 wks - Plan Plan:: * Routine cares * Encourage breast feeding * BP's appropriate. Continue to monitor closely * Discharge home tomorrow
[2018-03-31] MEDS: Docusate Sodium 100 MG Cap PO PRN ×2 (08:44→21:20)
[2018-04-01] MEDS: Ibuprofen 600 MG Tab PO PRN (05:32)
--- NOTE | 2018-04-01 10:24 | PCM.DCSUM1 ---
Discharge Summary - Hospital Course Free Text/Narrative:: See delivery dictation HPI Initial Comments: See delivery dictation Brief History: See delivery dictation - Discharge Data Discharge Date: 04/01/18 Discharge Disposition: Home, Self-Care 01 Condition: Good - Discharge Diagnosis/Problem(s) (1) Second degree laceration of perineum, delivered, current hospitalization SNOMED Code(s): 095989963 ICD Code: O70.1 - SECOND DEGREE PERINEAL LACERATION DURING DELIVERY Status : Acute Current Visit: Yes (2) 37 weeks gestation of SNOMED Code(s): 22097127 ICD Code: Z3A.37 - 37 WEEKS GESTATION OF Status: Acute Current Visit: Yes (3) Gestational hypertension SNOMED Code(s): 16184210 ICD Code: O13.9 - GESTATIONAL HTN W/O SIGNIFICANT PROTEINURIA, UNSP TRIMESTER Status: Acute Current Visit: Yes Qualifiers: Trimester: third trimester Qualified Code(s): O13.3 - Gestational [ -induced] hypertension without significant proteinuria, third trimester (4) Vaginal delivery SNOMED Code(s): 612805601 ICD Code: O80 - ENCOUNTER FOR FULL-TERM UNCOMPLICATED DELIVERY Status: Acute Current Visit: Yes - Patient Summary/Data Complications: None Consults: None Hospital Course: Uneventful - Patient Instructions Diet: Regular Diet as Tolerated, Low Sodium Driving: Do Not Drive (48 hours) Showering/Bathing: May Shower Notify Provider of: Fever, Increased Pain, Swelling and Redness, Drainage, Nausea and/or Vomiting - Discharge Plan Prescriptions/Med Rec: Ibuprofen [Advil Liqui-Gels] 200 - 600 mg PO Q6H #50 capsule Home Medications: Home Meds Vits #93/Iron Fum/FA [ Formula Tablet] 1 tab PO DAILY 10/14/17 [History] Ondansetron [Zofran ODT] 4 mg PO Q8H PRN #10 tab.dis 10/15/17 [Rx] Acetaminophen [Tylenol] 650 mg PO Q4H PRN tablet 04/01/18 [Rx] Ibuprofen [Advil Liqui-Gels] 200 - 600 mg PO Q6H #50 capsule 04/01/18 [Rx] Referrals: Yamileth Whitlock MD [Physician] - (Next week. Follow-up of blood pressure.) - Discharge Summary/Plan Comment DC Time >30 min.: No - Patient Data Vitals - Most Recent: Last Vital Signs Temp 99.5 F 04/01/18 08:09 Pulse 79 04/01/18 08:09 Resp 16 04/01/18 08:09 BP 131/91 H 04/01/18 08:09 Pulse Ox 98 04/01/18 08:09 Weight - Most Recent: 192 lb Med Orders - Current: Current Medications Acetaminophen (Tylenol) 650 mg PO Q4H PRN PRN Reason: mild pain or fever Last Admin: 03/31/18 08:43 Dose: 650 mg Benzocaine/Menthol (Dermoplast Pain Relief [place]) 0 gm TOP ASDIRECTED PRN PRN Reason: Perineal Comfort Measure Last Admin: 03/30/18 15:47 Dose: 1 spray Docusate Sodium (Colace) 100 mg PO BID PRN PRN Reason: Constipation Last Admin: 03/31/18 21:20 Dose: 100 mg Emollient Ointment (Lansinoh Hpa) 0 gm TOP ASDIRECTED PRN PRN Reason: Sore Nipples Ibuprofen (Motrin) 600 mg PO Q6H PRN PRN Reason: Mild pain or fever Last Admin: 04/01/18 05:32 Dose: 600 mg Witch Isi (Tucks) 1 pad TOP ASDIRECTED PRN PRN Reason: Hemorrhoid pain Last Admin: 03/30/18 15:47 Dose: 1 pad Discontinued Medications Diphenhydramine HCl (Benadryl) 25 mg IVPUSH Q6H PRN PRN Reason: Pruritis Ephedrine Sulfate (Ephedrine Sulfate) 5 mg IVPUSH ASDIRECTED PRN PRN Reason: Hypotension Fentanyl (Sublimaze) 100 mcg EPIDUR Q3H PRN PRN Reason: Pain Last Admin: 03/30/18 06:54 Dose: 100 mcg Fentanyl/Bupivacaine HCl (Fentanyl/Bupivacaine/Ns 2 Mcg-0.125% 100 Ml) 100 ml EPIDUR ASDIRECTED [facility] Last Admin: 03/30/18 06:54 Dose: 100 ml Lactated Ringer's (Ringers, Lactated) 1,000 mls @ 40 mls/hr IV ASDIRECTED [facility] Last Admin: 03/30/18 07:45 Dose: 40 mls/hr Oxytocin/Lactated Ringer's (Pitocin In Lr 10 Units/1,000 Ml) 10 unit in 1,000 mls @ 12 mls/hr IV TITRATE ZEE; Protocol Last Titration: 03/30/18 08:36 Dose: 9 munits/min, 54 mls/hr Oxytocin/Lactated Ringer's (Pitocin In Lr 10 Units/1,000 Ml) 10 unit in 1,000 mls @ 500 mls/hr IV .CONTINUOUS [facility]EE Oxytocin/Lactated Ringer's (Pitocin In Lr 10 Units/1,000 Ml) 10 unit in 1,000 mls @ 12 mls/hr IV TITRATE ZEE; Protocol Lidocaine HCl (Xylocaine 1%) Confirm Administered Dose 50 ml .ROUTE .[employer] ONE Stop: 03/30/18 12:39 Last Admin: 03/30/18 13:03 Dose: 50 ml Misoprostol (Cytotec) 25 mcg VAG Q4H PRN PRN Reason: cervical ripening Last Admin: 03/29/18 19:15 Dose: 25 mcg Misoprostol (Cytotec) Confirm Administered Dose 25 mcg .ROUTE .[employer] ONE Stop: 03/29/18 18:56 Last Admin: 03/29/18 23:24 Dose: Not Given Nalbuphine HCl (Nubain) 10 mg IVPUSH Q2H PRN PRN Reason: Pain (moderate 4-6) Ondansetron HCl (Zofran) 4 mg IVPUSH Q4H PRN PRN Reason: Nausea/Vomiting Last Admin: 03/30/18 07:44 Dose: 4 mg Ondansetron HCl (Zofran) 4 mg IVPUSH ONETIME PRN PRN Reason: Nausea/Vomiting Sodium Chloride (Saline Flush) 10 ml FLUSH ASDIRECTED PRN PRN Reason: Keep Vein Open
== END 2018-04-01 14:20 | disposition home or self-care (01) | DRG 560 ==
LOC: JD.OBCHECK 17:49 → JD.OB 17:50 → JD.OBCHECK 18:24 → OBSVTOIN 03-30 13:00 → JD.OB 03-30 13:01
PROVIDERS: ADMIT Obstetrics & Gynecology; ATTEND Obstetrics & Gynecology
PROC: 10907ZC Drainage of Amniotic Fluid, Therapeutic from Products of Conception, Via Natural or Artificial Opening (ICD-10-PCS; principal; 2018-03-30)
PROC: 0UQMXZZ Repair Vulva, External Approach (ICD-10-PCS; principal; 2018-03-30)
PROC: 6A550ZT Pheresis of Cord Blood Stem Cells, Single (ICD-10-PCS; principal; 2018-03-30)
PROC: 3E033VJ Introduction of Other Hormone into Peripheral Vein, Percutaneous Approach (ICD-10-PCS; principal; 2018-03-30)
PROC: 0KQM0ZZ Repair Perineum Muscle, Open Approach (ICD-10-PCS; principal; 2018-03-30)
PROC: 10E0XZZ Delivery of Products of Conception, External Approach (ICD-10-PCS; principal; 2018-03-30)
PROC: 00HU33Z Insertion of Infusion Device into Spinal Canal, Percutaneous Approach (ICD-10-PCS; 2018-03-30)
PROC: 3E0R3BZ Introduction of Anesthetic Agent into Spinal Canal, Percutaneous Approach (ICD-10-PCS; 2018-03-30)
DX: O13.4 Gestational [pregnancy-induced] hypertension without significant proteinuria, complicating childbirth (principal); O70.1 Second degree perineal laceration during delivery; Z3A.37 37 weeks gestation of pregnancy; Z37.0 Single live birth
CPT/HCPCS: 36415; 51702; 59025; 59300; 59409; 81001; 82565; 84450; 84460; 85027; 86850; 86900; 86901; A9270-GY; J2405; J2590; J3010; J7120